=== PATIENT | male | born 1945 | race Caucasian/White ===

== ENCOUNTER 2018-06-25 22:14 | Inpatient (IN) | payer MEDICARE ==
[~2018-06-25] VITALS: Ht 188 cm; Wt 79.8 kg
--- NOTE | 2018-06-25 22:20 | NUR ---
ZULLY. REPORT TAKEN BY EMS. PT DIAGNOSED WITH PNA AT [facility] TODAY AND SENT HOME WITH PO ANTIBIOTICS. PT STATES SOB AND COUGH WORSED SINCE THIS PM. PT ON ALL MONITORS, CALL LIGHT WITHIN REACH. EDMD AT BEDSIDE AND EXPLAINING PLAN OF CARE. PT'S AT BEDSIDE. AWAITING ORDERS.
--- NOTE | 2018-06-25 22:40 | NUR ---
preceptor note: EKG obtained by this RN and reviewed by ANTHONY Power.
[2018-06-25] MEDS ORDERED: ZOFRAN (22:42)
[2018-06-25] MEDS ORDERED: LEVOTHYROXINE (22:42)
[2018-06-25] MEDS ORDERED: BENZONATATE (22:43)
[2018-06-25] MEDS ORDERED: ALFUZOSIN (22:43)
[2018-06-25] MEDS ORDERED: AZITHROMYCIN (22:44)
--- NOTE | 2018-06-25 23:06 | NUR ---
FLU SWAB OBTAINED AND SENT TO LAB.
[2018-06-25 23:18] LABS: BASOPHILS # (AUTO) 0.03 x10^3/uL (0-0.1); BASOPHILS % (AUTO) 0 % (0-1); EOSINOPHILS # (AUTO) 0.14 x10^3/uL (0-0.4); EOSINOPHILS % (AUTO) 1 % (1-7); LYMPHOCYTES # (AUTO) 0.76 x10^3/uL (1-3.4); LYMPHOCYTES % (AUTO) 7 % (22-44); MD NO; MEAN CORPUSCULAR HEMOGLOBIN 32.6 pg (27.5-34.5); MEAN CORPUSCULAR HGB CONC 34.3 g/dL (33.2-36.2); MEAN CORPUSCULAR VOLUME 94.9 fL (81-97); MONOCYTES # (AUTO) 0.56 x10^3/uL (0.2-0.8); MONOCYTES % (AUTO) 5 % (2-9); NEUTROPHILS # (AUTO) 10.18 x10^3/uL (1.8-6.8); NEUTROPHILS % (AUTO) 87 % (42-75); PLATELET COUNT 255 x10^3/uL (130-400); RED BLOOD COUNT 3.79 x10^6/uL (4.38-5.82); RED CELL DISTRIBUTION WIDTH 14.9 % (9.4-14.8)
[2018-06-25] MEDS ORDERED: CEFTRIAXONE PMX 1GM/50ML 50 ML ONE (23:25)
[2018-06-25 23:28] LABS: ALBUMIN 3.2 g/dL (3.4-5.0); ANION GAP 7 mmol/L (5-15); CALCIUM 8.7 mg/dL (8.5-10.1); CHLORIDE 102 mmol/L (98-107); CREATININE 1.09 mg/dL (0.7-1.3)
[2018-06-25 23:29] LABS: RAPID INFLUENZA A Negative (Negative); RAPID INFLUENZA B Negative (Negative)
[2018-06-25] MEDS ORDERED: AZITHROMYCIN 500 MG in SODIUM CHLORIDE 0.9% 250 ML IV ONE (23:30)
[2018-06-25] MEDS ORDERED: CEFTRIAXONE PMX 1GM/50ML 50 ML IV ONE (23:30)
[2018-06-25 23:33] LABS: TROPONIN I < 0.015 ng/mL (0.000-0.045)
--- NOTE | 2018-06-25 23:42 | NUR ---
PT MEDICATED PER EMAR. PT TOLERATED WELL. PT'S AT BEDSIDE. ALL MONITORS IN PLACE. CALL LIGHT WITHIN REACH. PT AOX4. RESPS EVEN AND UNLABORED.
[2018-06-25] MEDS ORDERED: SODIUM CHLORIDE 0.9% 1,000 ML IV ONE (23:56)
[2018-06-26] MEDS ORDERED: GUAIFENESIN/DM 200-20MG, 10ML UDC PO PRN
[2018-06-26] MEDS: AZITHROMYCIN 500 MG in SODIUM CHLORIDE 0.9% 250 ML IV SCH
[2018-06-26] MEDS ORDERED: PHARMACY MAY ADJ FOR RENAL FX MC PRN
[2018-06-26] MEDS ORDERED: DOCUSATE 100 MG CAPSULE PO PRN
[2018-06-26] MEDS ORDERED: ACETAMINOPHEN 650 MG SUPP PR PRN
[2018-06-26] MEDS ORDERED: ONDANSETRON 2MG/ML, 2ML IVPB PRN
[2018-06-26] MEDS ORDERED: CEFTRIAXONE 1,000 MG in SODIUM CHLORIDE 0.9% 50 ML IVPB SCH
[2018-06-26] MEDS ORDERED: ONDANSETRON 2MG/ML, 2ML IVPush PRN
--- NOTE | 2018-06-26 00:02 | NUR ---
REPORT GIVEN TO MALAIKA ISABEL AT BEDSIDE. PT A&O, RESPS EVEN AND UNLABORED. VSS. ROCEPHIN INFUSING. PT AWAITING BED ASSINGMENT AND TRANSPORT AT THIS TIME.
--- NOTE | 2018-06-26 00:06 | NUR ---
ASSUMED CARE FOR PT AND AWAITING ADMIT TO FLOOR. PT WITH AT BEDSIDE AND O2 AT 4 L TO MAINTAIN O2 SATS GREATER THAN 90%
--- NOTE | 2018-06-26 01:00 | NUR ---
PT MEDICATED ORDERED. PT AWAITING TRANSPORT TO THE TELE FLOOR.
[2018-06-26] MEDS: BENZONATATE 100 MG CAPSULE PO SCH ×4 (01:53→21:34)
[2018-06-26] MEDS: ENOXAPARIN 40 MG/0.4 ML SQ SCH (01:53)
[2018-06-26 01:58] VITALS: BP 100/59
[2018-06-26 08:02] VITALS: BP 99/61
[2018-06-26] MEDS: SODIUM CHLORIDE 0.9% 1,000 ML IV SCH ×2 (14:13)
[2018-06-26 14:18] VITALS: BP 107/64
[2018-06-26 21:31] VITALS: BP 104/62
[2018-06-26] MEDS: GUAIFENESIN ER 600 MG TABLET PO SCH (21:34)
[2018-06-26] MEDS ORDERED: ORAJEL 7GM TUBE MM PRN (22:00)
[2018-06-26] MEDS: CEFTRIAXONE PMX 1GM/50ML 50 ML IV SCH (23:30)
[2018-06-27] MEDS: AZITHROMYCIN 500 MG in SODIUM CHLORIDE 0.9% 250 ML IV SCH (00:31)
[2018-06-27 01:28] VITALS: BP 114/66
[2018-06-27] MEDS: SODIUM CHLORIDE 0.9% 1,000 ML IV SCH ×2 (02:29→16:00)
[2018-06-27] MEDS: ENOXAPARIN 40 MG/0.4 ML SQ SCH (02:29)
[2018-06-27 05:54] LABS: BASOPHILS # (AUTO) 0.02 x10^3/uL (0-0.1); BASOPHILS % (AUTO) 0 % (0-1); EOSINOPHILS # (AUTO) 0.61 x10^3/uL (0-0.4); EOSINOPHILS % (AUTO) 7 % (1-7); LYMPHOCYTES % (AUTO) 9 % (22-44); MD NO; MEAN CORPUSCULAR HEMOGLOBIN 32.8 pg (27.5-34.5); MEAN CORPUSCULAR HGB CONC 34.2 g/dL (33.2-36.2); MEAN CORPUSCULAR VOLUME 96.2 fL (81-97); MEAN PLATELET VOLUME 8.1 fL (7.4-10.4); MONOCYTES # (AUTO) 0.51 x10^3/uL (0.2-0.8); MONOCYTES % (AUTO) 6 % (2-9); NEUTROPHILS # (AUTO) 6.77 x10^3/uL (1.8-6.8); NEUTROPHILS % (AUTO) 78 % (42-75); PLATELET COUNT 226 x10^3/uL (130-400); RED BLOOD COUNT 3.15 x10^6/uL (4.38-5.82); RED CELL DISTRIBUTION WIDTH 14.6 % (9.4-14.8)
[2018-06-27 06:07] LABS: CHLORIDE 107 mmol/L (98-107)
[2018-06-27 06:26] LABS: ALBUMIN 2.4 g/dL (3.4-5.0); ANION GAP 7 mmol/L (5-15); CALCIUM 7.6 mg/dL (8.5-10.1); CREATININE 0.72 mg/dL (0.7-1.3)
[2018-06-27 07:54] VITALS: BP 111/68
[2018-06-27] MEDS ORDERED: LEVO137T3 PO (07:55)
[2018-06-27] MEDS ORDERED: ALFU10TA PO (08:00)
[2018-06-27] MEDS ORDERED: MIRA50TA PO (08:00)
[2018-06-27] MEDS: GUAIFENESIN ER 600 MG TABLET PO SCH ×2 (08:36→20:28)
[2018-06-27] MEDS: BENZONATATE 100 MG CAPSULE PO SCH ×3 (08:36→19:46)
[2018-06-27] MEDS: TEMPLATE NON-FORMULARY MED. (Mirabegron** (Myrbetriq**) 50 MG) PO SCH (09:00)
[2018-06-27] MEDS ORDERED: LEVOTHYROXINE 137 MCG TABLET PO SCH (09:00)
[2018-06-27] MEDS ORDERED: POTASSIUM PHOSPHATE 44 MEQ in SODIUM CHLORIDE 0.9% 500 ML IV ONE (09:30)
[2018-06-27] MEDS: TEMPLATE NON-FORMULARY MED. (Alfuzosin Hcl** (Uroxatral**) 10 MG) PO SCH (10:25)
[2018-06-27 12:31] VITALS: BP 109/70
[2018-06-27 19:45] VITALS: BP 111/74
[2018-06-28] MEDS: CEFTRIAXONE PMX 1GM/50ML 50 ML IV SCH (00:13)
[2018-06-28] MEDS: SODIUM CHLORIDE 0.9% 1,000 ML IV SCH (01:32)
[2018-06-28] MEDS: AZITHROMYCIN 500 MG in SODIUM CHLORIDE 0.9% 250 ML IV SCH (01:32)
[2018-06-28] MEDS: ENOXAPARIN 40 MG/0.4 ML SQ SCH (01:32)
[2018-06-28 01:55] VITALS: BP 103/65
[2018-06-28] MEDS ORDERED: LEVOTHYROXINE 137 MCG TABLET PO SCH (06:00)
[2018-06-28] MEDS ORDERED: ACETAMINOPHEN 325 MG TABLET ONE (06:43)
[2018-06-28] MEDS ORDERED: ACETAMINOPHEN 325 MG TABLET PO PRN (07:00)
[2018-06-28 08:10] VITALS: BP 103/68
[2018-06-28] MEDS: TEMPLATE NON-FORMULARY MED. (Mirabegron** (Myrbetriq**) 50 MG) PO SCH (08:57)
[2018-06-28] MEDS ORDERED: AZIT500T PO (09:13)
[2018-06-28] MEDS ORDERED: CEFU500T50 PO (09:13)
[2018-06-28] MEDS: GUAIFENESIN ER 600 MG TABLET PO SCH (09:19)
[2018-06-28] MEDS: TEMPLATE NON-FORMULARY MED. (Alfuzosin Hcl** (Uroxatral**) 10 MG) PO SCH (09:19)
[2018-06-28] MEDS: BENZONATATE 100 MG CAPSULE PO SCH (09:19)
== END 2018-06-28 15:50 | disposition home or self-care (01) | DRG 871 ==
LOC: ED 23:05 → SUATTDRO 23:56 → EDIP 06-26 00:03 → 4EST 06-26 01:33 → 4WST 06-26 12:38 → DCLOUNGE 06-28 15:21
PROVIDERS: ADMIT Hospitalist; ATTEND Hospitalist
DX: A41.9 Sepsis, unspecified organism (principal); J15.9 Unspecified bacterial pneumonia; J96.01 Acute respiratory failure with hypoxia; D64.9 Anemia, unspecified; E03.9 Hypothyroidism, unspecified; E78.00 Pure hypercholesterolemia, unspecified; I44.7 Left bundle-branch block, unspecified; N40.0 Benign prostatic hyperplasia without lower urinary tract symptoms
CPT/HCPCS: 36415; 71045; 71046; 80048; 82040; 83605; 83735; 84100; 84145; 84484; 85025; 87040; 87400; 93005; 96365; 96367; 99291; G0378; J0456; J0696; J1650; J7030; J7040; J7050